=== PATIENT | male | born 1950 | race Caucasian/White ===

== ENCOUNTER 2017-11-28 07:24 | Day surgery (SDC) | payer MEDICARE, BC ==
[~2017-11-28 07:24] MED LIST: ACETAMINOPHEN 1,000 MG/100 ML BTL IV ONE
[2017-11-28] MEDS ORDERED: HYDROCODONE/APAP 7.5/325MG TABLET PO ONE (07:25)
[2017-11-28] MEDS ORDERED: ROPIVACAINE HCL (NAROPIN) /PF 5MG/ML 20ML VIAL IV ONE (07:25)
[2017-11-28] MEDS ORDERED: EPINEPHRINE 1 MG/ML AMPUL SQ ONE (07:25)
[2017-11-28] MEDS ORDERED: FENTANYL PF 100MCG/2ML VIAL IV ONE ×2 (07:25)
[2017-11-28] MEDS ORDERED: PROPOFOL 10 MG/ML VIAL IV ONE (07:25)
[2017-11-28] MEDS ORDERED: LIDOCAINE 2% MDV (20MG/ML) 20ML VIAL IV ONE (07:25)
[2017-11-28] MEDS ORDERED: KETOROLAC 30 MG/ML VIAL IVP ONE ×2 (07:25)
[2017-11-28] MEDS ORDERED: EPHEDRINE SULFATE 50 MG/ML ML IV ONE (07:25)
[2017-11-28] MEDS ORDERED: MIDAZOLAM HCL 2MG/2ML VIAL IV ONE (07:25)
[2017-11-28] MEDS ORDERED: DEXAMETHASONE 4 MG/ML 1ML VIAL IVP ONE (07:25)
[2017-11-28 07:45] LABS: BASO % 2.2 % (0-6); EOS % 3.5 % (0-6); GRAN % 47.6 % (47-80); HEMATOCRIT 45.5 % (42.0-52.0); HEMOGLOBIN 14.7 gm/dl (14.0-18.0); LYMPH % 32.6 % (16-45); MEAN CORPUSCULAR HEMOGLOBIN 27.8 pg (27-33); MEAN CORPUSCULAR HGB CONC 32.3 g/dl (32-36); MEAN PLATELET VOLUME 9.4 fl (7.4-10.4); MONO % 14.1 % (0-9); PLATELET COUNT 311 K/uL (130-400); RED BLOOD COUNT 5.29 M/uL (4.40-5.70); RED CELL DISTRIBUTION WIDTH 13.4 % (11.5-14.5)
[2017-11-28 07:59] LABS: BLOOD UREA NITROGEN 21 mg/dL (8-23); CREATININE 0.9 mg/dL (0.7-1.2); EST GLOMERULAR FILTRATION RATE > 60 mL/min; GLUCOSE,RANDOM 110 mg/dL (74-109)
--- NOTE | 2017-11-29 17:30 | Operative Note ---
DATE OF SURGERY: 11/28/2017 SURGEON: Loi Hernandez DO REFERRING: Gonzalo Miller DO PREOPERATIVE DIAGNOSIS: Tear of the superior glenoid labrum. POSTOPERATIVE DIAGNOSES: 1. Tear of the left rotator cuff. 2. Impingement syndrome, left shoulder. 3. Tear of the superior glenoid labrum, left shoulder. OPERATIVE PROCEDURE: 1. Arthroscopic repair, left rotator cuff. 2. Arthroscopic subacromial decompression and acromioplasty, left shoulder. 3. Arthroscopic debridement of the superior glenoid labrum. DESCRIPTION: This 67-year-old male was taken to the operating room and placed in the supine position on the operating room table. General anesthesia was induced and the patient was placed in the beach chair position with all bony prominences well padded and head was secured. The left shoulder prepped with Hibiclens and draped in the usual sterile fashion. A posterior portal was established in the glenohumeral joint, and initial evaluation of the joint demonstrated normal appearance of the articular cartilage of the glenohumeral joint. There was normal appearance of the glenohumeral ligaments and subscapularis. There was fraying of the glenoid labrum from about the 10 o'clock position up to the biceps anchor. Utilizing the rotating shaver through an anterior portal, we debrided the labrum and debrided underneath the labrum as well. There was some fraying of the tissue here, but it did not appear to be detached from the bony glenoid. This configuration was from about the 11 o'clock to the 1 o'clock position. The biceps tendon itself appeared relatively normal with no splintering or fraying being identified. It was not displaced and was not further disturbed. However, we were able to visualize a tear in the rotator cuff supraspinatus tendon. This tear just posterior to the biceps did appear to be full-thickness defect just behind the biceps, but there was also extensive tearing of the supraspinatus away from the normal attachment site at the margin of the articular cartilage. This area was marked with a suture and then the scope was placed in the subacromial space and thorough subacromial decompression and acromioplasty was performed and there was extensive bursa present. Once this had been accomplished, we had excellent visualization of the rotator cuff and the patient did demonstrate a defect which appeared to be full-thickness anteriorly. This was debrided down to the tuberosity and the torn cuff was debrided with the ArthroCare wand and rotating shaver. Once healthy-appearing tissue was determined, we began the repair. The tuberosity was debrided of all soft-tissue to create good bony ingrowth on the footprint. Subsequently, we repaired this utilizing the Arthrex SpeedBridge technique utilizing two 4.75 SwiveLock anchors, one with a fiber tape and one with a tiger tape attached, placed adjacent to the articular cartilage, one at the anterior and one at the posterior margin of the tear. Subsequently, these sutures were shuttled to the rotator cuff and a single limb of each suture was then grasped and placed through a third SwiveLock anchor,, which was placed inferior to the anterior anchor and traction placed on these sutures to bring the cuff down to the anatomic footprint. Once this had been accomplished, this anchor was impaled. The remaining 2 tails of suture were placed through a fourth SwiveLock anchor, which was placed inferior to the posterior anchor and traction was then placed on these two sutures to bring the remaining tails of suture down tight to anchor the cuff to the tuberosity. Once the appropriate tension had been placed, the anchor was impaled and the sutures were cut. The repair was seen to be satisfactory. The wound was irrigated and suctioned, the portals were closed with 4-0 nylon suture, sterile dressings were applied, and the UltraSling was applied, and the patient was taken to the recovery room in satisfactory condition. GROSS PATHOLOGY: This patient had some fraying of the superior glenoid labrum, but it did not appear to be attached from bony glenoid, and we debrided it, but did not place any anchors or sutures in it. This was felt to be unnecessary. The biceps tendon appeared to be normal. CC: DO KATIUSKA EstevezD
== END 2017-11-28 11:45 | disposition home or self-care (01) ==
LOC: SUR 07:24
PROVIDERS: ATTEND Orthopaedic Surgery
DX: M75.122 Complete rotator cuff tear or rupture of left shoulder, not specified as traumatic (principal); M75.42 Impingement syndrome of left shoulder; M24.112 Other articular cartilage disorders, left shoulder
CPT/HCPCS: 29827; 29826; 64415; 01630; 85025; 80048; 93005; 93010; J1885; J3010; J2795; J0171

== ENCOUNTER 2018-03-25 12:43 | Day surgery (SDC) | payer MEDICARE ==
[~2018-03-25 12:43] MED LIST changes: +CEFAZOLIN 2 Gram 2 GM/50 ML BAG IVPB ONE
[2018-03-25] MEDS ORDERED: FENTANYL PF 100MCG/2ML VIAL IV ONE (12:44)
[2018-03-25] MEDS ORDERED: LIDOCAINE 2% MDV (20MG/ML) 20ML VIAL IV ONE (12:44)
[2018-03-25] MEDS ORDERED: MIDAZOLAM HCL 2MG/2ML VIAL IV ONE (12:44)
[2018-03-25] MEDS ORDERED: PROPOFOL 10 MG/ML VIAL IV ONE (12:44)
--- NOTE | 2018-03-26 12:21 | Operative Note ---
DATE OF SURGERY: 03/25/2018 PREOPERATIVE DIAGNOSIS: BPH with obstructive symptoms. POSTOPERATIVE DIAGNOSIS: BPH with obstructive symptoms. OPERATION: Cystoscopy. Anesthesia: Sedation. Indication: A 67-year-old male with a combination of BPH medical therapy with worsening voiding symptoms who presents for further investigation today. We discussed the procedure in detail preoperatively including potential risks of pain, bleeding, infection, iatrogenic injury, retention, and incontinence. He understands and wishes to proceed. PROCEDURE: Preop informed consent was obtained. Antibiotics were given. Sedation was administered. The patient was brought to the operating room, placed supine and genitalia prepped and draped sterilely. A flexible cystoscope was then used to advance into the anterior urethra which appeared unremarkable. The prostate was then entered and inspected carefully. The prostate shows [id number] lateral lobe hypertrophy. The bladder was entered and inspected systematically. There was moderate trabeculation seen and both ureteral orifices had normal appearance and positioning and no further bladder abnormality was seen. The scope was then withdrawn carefully and the procedure was terminated. The patient was awakened and transferred to recovery in stable condition. PLAN: The patient will be following up in 1 week to discuss treatment options which will include all available options including transurethral resection of the prostate, laser vaporization, office-based therapies such as Rezum and UroLift. We will decide on our mode of treatment at that time. CC: DO AARON Estevez
== END 2018-03-25 15:22 | disposition home or self-care (01) ==
LOC: SUR 12:43
PROVIDERS: ATTEND Urology
DX: N40.1 Benign prostatic hyperplasia with lower urinary tract symptoms (principal); E78.00 Pure hypercholesterolemia, unspecified
CPT/HCPCS: 52000; 00910; J3010; J0690